=== PATIENT | female | born 1945 | race Caucasian/White ===

== ENCOUNTER 2021-07-08 07:12 | Outpatient (CLI) | payer OTHER ==
[~2021-07-08 07:12] MED LIST: COZAAR25 MG; EVISTA60 MG; NABUMETONE500 MG PO; PERCOCET 5/3251 TAB PO
== END 2021-07-08 07:32 | disposition home or self-care (01) ==
LOC: SONOGRAMA 07:12
PROVIDERS: ATTEND Specialist
DX: S00.83XA Contusion of other part of head, initial encounter (principal)

== ENCOUNTER 2023-05-08 12:50 | Outpatient (CLI) | payer OTHER | END 2023-05-08 12:58 | disposition home or self-care (01) | LOC: MRI 12:50 | PROVIDERS: ATTEND Psychiatry & Neurology Clinical Neurophysiology | DX: G30.1 Alzheimer's disease with late onset (principal) | CPT/HCPCS: 70551 ==